=== PATIENT | female | born 1930 | race Caucasian/White ===

== ENCOUNTER 2016-08-04 10:06 | Outpatient (CLI) | payer MEDICARE, BC ==
[2016-08-04 11:54] LABS: ALT (SGPT) 16 U/L (0-55); AST (SGOT) 24 U/L (5-34); Albumin 3.9 g/dL (3.4-4.8); Alkaline Phosphatase 73 U/L (40-150); Anion Gap 14 mmol/L (10-20); BUN (Urea Nitrogen) 16 mg/dL (9.8-20.1); Bilirubin, Direct 0.4 mg/dL (0.1-0.3); Bilirubin, Total 0.9 mg/dL (0.2-1.2); Calc. Creatinine Clearance 0 mL/min (70-130); Calcium 9.8 mg/dL (7.8-10.44); Carbon Dioxide 24 mmol/L (23-31); Cardiac Risk 2.9 (Less than 4.5); Chloride 108 mmol/L (98-107); Cholesterol 136 mg/dL (< 200 Desired); Estimated GFR-MDRD 70; Glucose 84 mg/dL (83-110); HDL Cholesterol 47 mg/dL (>60 Neg Risk); LDL Cholesterol, Calculated 58 mg/dL; Potassium 4.6 mmol/L (3.5-5.1); Protein, Total 6.8 g/dL (5.8-8.1); Sodium 141 mmol/L (136-145); Triglycerides 157 mg/dL (Less than 150)
== END 2016-08-04 10:07 | disposition home or self-care (01) ==
LOC: BURLAB 10:06
PROVIDERS: ATTEND Internal Medicine Cardiovascular Disease
DX: E78.2 Mixed hyperlipidemia (principal); I10 Essential (primary) hypertension; Z98.61 Coronary angioplasty status
CPT/HCPCS: 36415; 80048; 80061; 80076

== ENCOUNTER 2018-01-08 11:05 | Emergency (ER) | payer MEDICARE, BC ==
--- NOTE | 2018-01-08 18:55 | RAD ---
LEFT WRIST THREE VIEWS: Date: 01-08-18 FINDINGS: A transverse impacted fracture of the distal radius is present with very slight posterior displacemen t of the distal fragment. There is also a relatively undisplaced fracture of the ulnar styloid proces s. The bones are osteopenic. The carpal bones showed no fracture. There is severe arthritic change be tween the trapezium and base of the first metacarpal. IMPRESSION: Colles' fracture. POS: HOME
== END 2018-01-08 12:03 | disposition home or self-care (01) ==
LOC: BURERS 11:05
DX: S52.502A Unspecified fracture of the lower end of left radius, initial encounter for closed fracture (principal); S52.615A Nondisplaced fracture of left ulna styloid process, initial encounter for closed fracture; I25.10 Atherosclerotic heart disease of native coronary artery without angina pectoris; I25.2 Old myocardial infarction; E78.5 Hyperlipidemia, unspecified; I10 Essential (primary) hypertension; J44.9 Chronic obstructive pulmonary disease, unspecified; Z86.711 Personal history of pulmonary embolism; Z87.891 Personal history of nicotine dependence; Z79.899 Other long term (current) drug therapy; Z79.82 Long term (current) use of aspirin
CPT/HCPCS: 29125

== ENCOUNTER 2018-01-11 18:52 | Inpatient (IN) | payer MEDICARE, BC ==
[2018-01-11 19:48] LABS: #Basophils 0.1 thou/uL (0.0-0.2); #Eosinphils 0.3 thou/uL (0.0-0.7); #Lymphocytes 1.8 thou/uL (1.20-3.40); #Monocytes 1.1 thou/uL (0.11-0.59); #Neutrophils 5.6 thou/uL (1.40-6.50); %Basophils 1.3 % (0.0-1.0); %Eosinophils 3.4 % (0.0-10.0); %Lymphocytes 20.5 % (21.0-51.0); %Monocytes 12.1 % (0.0-10.0); %Neutrophils 62.6 % (42.0-75.0); Hemoglobin 12.9 g/dL (12.0-16.0); Mean Corpuscular Hemoglobin 29.1 pg (27.0-31.0); Mean Corpuscular Volume 88.2 fL (78.0-98.0); Mean Platelet Volume 8.6 fL (7.4-10.4); Platelet Count 172 thou/uL (130-400); RBC Distribution Width 12.7 % (11.5-14.5); Red Blood Cell (RBC) Count 4.42 mill/uL (4.20-5.40); White Blood Cell (WBC) Count 8.9 thou/uL (4.8-10.8)
[2018-01-11 20:03] LABS: ALT (SGPT) 8 U/L (8-55); AST (SGOT) 13 U/L (5-34); Albumin 3.6 g/dL (3.4-4.8); Alkaline Phosphatase 65 U/L (40-150); Anion Gap 13 mmol/L (10-20); BUN (Urea Nitrogen) 19 mg/dL (9.8-20.1); CK (CPK) 43 U/L (29-168); Calc. Creatinine Clearance 0 mL/min (70-130); Calcium 9.6 mg/dL (7.8-10.44); Carbon Dioxide 27 mmol/L (23-31); Chloride 104 mmol/L (98-107); Estimated GFR-MDRD 70; Globulin 3.1 g/dL (2.4-3.5); Glucose 126 mg/dL (83-110); Potassium 3.5 mmol/L (3.5-5.1); Protein, Total 6.7 g/dL (6.0-8.3); Sodium 140 mmol/L (136-145)
[2018-01-11 20:05] LABS: CKMB 1.3 ng/mL (0-6.6); Troponin I Less than 0.010 ng/mL (< 0.028)
[2018-01-11 20:21] LABS: Clarity SLIGHTLY (Clear); Glucose, Urine (Dipstick) Negative (Negative); Leukocyte Negative (Negative); Nitrite Negative (Negative); Protein, Urine (Dipstick) 100 mg/dL (Neg-Trace); Specific Gravity, Urine 1.028 (1.002-1.036)
[2018-01-11 20:22] LABS: Bilirubin Negative (Negative); Blood, Urine Negative (Negative)
[2018-01-11 20:25] LABS: Bacteria/HPF Rare-Few HPF (None Seen); Renal Epithelial None Seen HPF (0-3); Squamous Epithelial 0-3 HPF (0-3); Transitional Epithelial NONE SEEN HPF (0-3)
[2018-01-11 20:26] LABS: Crystals/HPF None Seen HPF (Negative); Hyaline Casts/LPF NONE SEEN LPF (0-3 Hyaline); Oval Fat Bodies/HPF None Seen HPF (None Seen); Sperm/HPF None Seen HPF (None Seen); Trichomonas/HPF None Seen HPF (None Seen); Yeast-All Forms None Seen HPF (None Seen)
[2018-01-11 20:27] LABS: Other Casts/LPF 0-3 MIXED CASTS LPF (0-3 Hyaline)
--- NOTE | 2018-01-11 20:40 | CT ---
CT OF THE BRAIN WITHOUT CONTRAST: 01/11/[address] of the brain was performed for evaluation following trauma. Axial slices were acquired and comparison was made with the prior study dated 01/25/15. The ventricle are normal in size for age and show no shift. Mild atrophy is present. Patchy deep whit e matter hypolucency is consistent with chronic microvascular ischemic change. No intracranial bleedi ng or extra-axial hematoma was seen. There is some mucosal thickening in the sphenoid sinus on the ri ght side but no air fluid levels were seen. The calvarium appears intact. There is no sign of mass, a cute stroke or edema. IMPRESSION: Chronic ischemic changes but no acute findings. POS: HOME
[2018-01-11] MEDS ORDERED: Ondansetron HCl/PF 4 MG/2 ML Vial IVP PRN (22:13)
[2018-01-11] MEDS ORDERED: Ondansetron ODT 4 MG TAB SL PRN (22:13)
--- NOTE | 2018-01-11 22:32 | RAD ---
PORTABLE CHEST: 01/11/18 An AP portable film at 1938 is compared with a 08/09/16 study. Chronic fibrotic changes are seen in the lungs, particularly in the apices. These are about the same as before. there may be a little more haziness in the right cardiophrenic angle but this is uncertain . There is no major lobar infiltrate. The cardiac size is normal. Arteriosclerotic change is seen in the aorta. There is no congestive change. IMPRESSION: Chronic parenchymal changes. POS: HOME
[2018-01-11 23:08] VITALS: BMI 28.1
[2018-01-12] MEDS: Acetaminophen 325 MG TAB PO PRN (04:06)
[2018-01-12] MEDS ORDERED: HYDROcodone/Acetaminophen 5/325 mg Tablet PO PRN (07:25)
[2018-01-12] MEDS ORDERED: Senokot 8.6 MG TAB PO PRN (07:25)
[2018-01-12] MEDS: Amlodipine 5 MG TAB PO SCH (09:50)
[2018-01-12] MEDS: Fish Oil 1,000 MG CAP PO SCH (09:52)
[2018-01-12] MEDS: Multivit, Therapeutic 1 TAB PO SCH (09:52)
[2018-01-12] MEDS: Vitami E (Dl,Tocopheryl Acet) 400 UNITS CAP PO SCH ×2 (09:53→11:31)
[2018-01-12] MEDS: Polyethylene Glycol 3350 17 GM Packet PO SCH (09:53)
[2018-01-12] MEDS: Lisinopril 20 MG TAB PO SCH ×2 (09:55→22:14)
[2018-01-12] MEDS: Arformoterol 15 MCG/2 ML NEB NEB SCH ×2 (09:56→17:30)
[2018-01-12] MEDS: Mometasone/Formoterol 60 PUFF AER INH SCH ×2 (09:57→17:33)
[2018-01-12] MEDS: Budesonide 0.5 MG/2 ML NEB NEB SCH ×2 (09:58→17:31)
--- NOTE | 2018-01-12 10:17 | HP ---
DATE OF ADMISSION 01/12/2018 CHIEF COMPLAINT: Generalized weakness. HISTORY OF PRESENT ILLNESS: An 87-year-old female who presented to [facility] Emergency Department last night with progressive weakness and complaints of dizziness. She had recently been seen at [facility] Emergency Department this last weekend status post fall at home with resultant left distal radius fracture; she was placed in a splint and offered admission at that time secondary to her weakness, however, she declined. Upon returning home , she realized that she was unable to satisfactorily take care of herself over the next few days, specifically stating that she is unable to effectively arise from any of the chairs in her house. The patient does live alone and has family nearby. She is typically ambulatory with the assistance of her rolling walker. She presented to the emergency department last night secondary to her symptoms of weakness and accompanying complaint of dizziness, progressing to the point where she is unsatisfactorily able to care for herself. Evaluation in the emergency department included labs with a reassuring CBC, CMP, cardiac enzymes and urinalysis; a chest x-ray showed chronic parenchymal changes and a brain CT showed chronic ischemic changes, but no acute findings. The patient was subsequently admitted for her presenting symptoms and has been evaluated this morning by myself. She reports to be feeling well overall other than her progressive presenting symptoms. She is understanding of her need to participate with physical therapy and occupational therapy. She desires to follow up with Dr. Jimenez in regards to her left distal radius fracture. She reports to be right handed. The patient reports her ultimate goal is to be able to return to her home setting; however, is amenable to potentially discharge to the custodial should she be unable to satisfactorily meet the goals set by PT/OT. PAST MEDICAL HISTORY: Hypertension, gastroesophageal reflux disease, stress fracture sacroiliac, skin cancer removed from face, closed fracture of the shaft of the fibula and tibia. SURGICAL HISTORY: Appendectomy, tonsillectomy, hysterectomy, shoulder surgery, total knee replacement, spine surgery, hip replacement, carpal tunnel, cardiac stents. SOCIAL HISTORY: The patient is a nonsmoker, no alcohol use, no illicit drug use. She lives at home with family nearby. ALLERGIES: ADHESIVE TAPE. FAMILY HISTORY: Noncontributory. CURRENT MEDICATIONS: Include Ranexa 500 mg p.o. b.i.d., Lipitor 20 mg p.o. at bedtime, biotin 5 mg p.o. daily, multivitamin p.o. daily, omega 3 1000 mg 2 capsules daily, albuterol nebs 2.5 mg/3 mL q.4 hours p.r.n., Perforomist 20 mcg/ 2 mL nebs 2 nebs b.i.d., Pulmicort, lisinopril 20 mg p.o. b.i.d., metoprolol succinate 50 mg p.o. daily, isosorbide mononitrate extended release 30 mg 1/2 tablet p.o. daily and pantoprazole 40 mg p.o. daily. REVIEW OF SYSTEMS: GENERAL: Complains of generalized weakness. Denies fever. ENT: Denies sore throat, nasal drainage or congestion. CARDIOVASCULAR: Denies chest pain or palpitations. RESPIRATORY: Denies dyspnea or cough. GASTROINTESTINAL: Denies abdominal pain, nausea, vomiting, diarrhea or constipation. GENITOURINARY: Denies dysuria. MUSCULOSKELETAL: Complains of mild joint pains of the left wrist. DERMATOLOGIC: Denies rash. NEUROLOGIC: Denies headache. LABORATORY DATA: White blood cell count 8.9, H&H is 12.9 and 39.0, platelets 172. Sodium 140, potassium 3.5, BUN 19, creatinine 0.78 with a GFR 70, glucose 126, calcium 9.6, AST 13, ALT 8. UA is negative for nitrites or leukocyte esterase. IMAGING: As per HPI. PHYSICAL EXAMINATION: VITAL SIGNS: Temperature is 98.4, pulse is 87, respiratory rate is 20, oxygen 95% on room air, blood pressure 136/80. GENERAL: Elderly patient alert and oriented x3 in no acute distress. FACE: No asymmetry. EYES: Conjunctivae are clear. Extraocular muscles are intact bilaterally. No discharge. HEENT: Within normal limits. Oral cavity has moist mucous membranes. NECK: Supple, full range of motion. No lymphadenopathy, no meningeal signs. CARDIOVASCULAR: 2/6 systolic ejection murmur, regular rate and rhythm. RESPIRATORY: Clear to auscultation bilaterally. ABDOMEN: Soft, nontender to palpation, no masses, no organomegaly. EXTREMITIES: Distal left upper extremity has a splint. She has a right peripheral IV. LYMPH: Lymphedema to bilateral lower extremities. SKIN: No rash. NEUROLOGIC: Nonfocal. Cranial nerves II-XII grossly intact. ASSESSMENT AND PLAN: 1. Generalized weakness. The patient will participate with physical therapy and occupational therapy with a goal to be able to return home where she will likely need to be set up with home health as she is homebound, and if unable to reach these goals then will plan for transition to a custodial facility. 2. Recurrent falls. Patient again needs therapy. She is typically ambulatory with assistance of a rolling walker. 3. Left distal radius fracture. Nursing will attempt to schedule the patient with Dr. Jimenez in regards to this. She is currently in a splint. 4. Hypertension. The patient is hemodynamically stable. Continue her home blood pressure medications. 5. Chronic venous stasis. This is at baseline. The patient has been adverse to diuretic therapy secondary to lack of medication benefit with the complaint of requiring her to void with frequency. 6. Hyperlipidemia. We will continue the patient's statin. DISPOSITION: Pending progress with physical therapy and occupational therapy, we will plan to either have the patient return home with home health versus nursing facility. Prophylaxis, we will provide a PPI. No anticoagulants secondary to prior GI bleed. MTDD
[2018-01-12] MEDS: HYDROcodone/Acetaminophen 5/325 mg Tablet PO PRN (18:46)
[2018-01-12] MEDS: Atorvastatin Calcium 10 MG TAB PO SCH (22:12)
[2018-01-13] MEDS: HYDROcodone/Acetaminophen 5/325 mg Tablet PO PRN (03:39)
[2018-01-13] MEDS: Budesonide 0.5 MG/2 ML NEB NEB SCH ×2 (06:16→17:10)
[2018-01-13] MEDS: Arformoterol 15 MCG/2 ML NEB NEB SCH ×2 (06:20→17:09)
[2018-01-13] MEDS: Mometasone/Formoterol 60 PUFF AER INH SCH ×2 (06:28→17:11)
[2018-01-13] MEDS: Vitami E (Dl,Tocopheryl Acet) 400 UNITS CAP PO SCH (09:40)
[2018-01-13] MEDS: Amlodipine 5 MG TAB PO SCH (09:41)
[2018-01-13] MEDS: Fish Oil 1,000 MG CAP PO SCH (09:41)
[2018-01-13] MEDS: Lisinopril 20 MG TAB PO SCH ×2 (09:42→22:01)
[2018-01-13] MEDS: Polyethylene Glycol 3350 17 GM Packet PO SCH (09:42)
[2018-01-13] MEDS: Multivit, Therapeutic 1 TAB PO SCH (09:42)
[2018-01-13] MEDS: Acetaminophen 325 MG TAB PO PRN (19:49)
[2018-01-13] MEDS ORDERED: Multivit, Therapeutic 1 TAB PO SCH (21:00)
[2018-01-13] MEDS ORDERED: Fish Oil 1,000 MG CAP PO SCH (21:00)
[2018-01-13] MEDS: Atorvastatin Calcium 10 MG TAB PO SCH (21:48)
[2018-01-14] MEDS: Acetaminophen 325 MG TAB PO PRN (05:39)
[2018-01-14] MEDS: Arformoterol 15 MCG/2 ML NEB NEB SCH (06:06)
[2018-01-14] MEDS: Budesonide 0.5 MG/2 ML NEB NEB SCH (06:12)
[2018-01-14] MEDS: Mometasone/Formoterol 60 PUFF AER INH SCH (06:15)
[2018-01-14 06:53] VITALS: TEMP 98.9
[2018-01-14] MEDS: Amlodipine 5 MG TAB PO SCH (08:54)
[2018-01-14] MEDS: Polyethylene Glycol 3350 17 GM Packet PO SCH (08:54)
[2018-01-14] MEDS: Vitami E (Dl,Tocopheryl Acet) 400 UNITS CAP PO SCH (08:56)
[2018-01-14] MEDS: Lisinopril 20 MG TAB PO SCH (08:56)
[2018-01-14 09:00] VITALS: BP 130/58
[2018-01-14] MEDS: HYDROcodone/Acetaminophen 5/325 mg Tablet PO PRN (09:07)
--- NOTE | 2018-01-14 22:13 | DIS ---
DATE OF ADMISSION: 01/11/2018 DATE OF TRANSFER: 01/14/2018 ADMISSION DIAGNOSES: 1. Generalized weakness. 2. Left distal radius fracture. DISCHARGE DIAGNOSES: 1. Generalized weakness. 2. Left distal radius fracture. COMORBID CONDITIONS: 1. Hypertension. 2. Chronic venous stasis. 3. Hyperlipidemia. 4. Chronic obstructive pulmonary disease. 5. Coronary artery disease with history of myocardial infarction and stent placement. ATTENDING PHYSICIAN: Dr. Santiago Elizabeth with Dr. Ila Cordova covering on the date of transfer. PROCEDURES: 1. CT of the brain from the date of admission without contrast, which showed chronic ischemic changes, but no acute findings. 2. Chest x-ray from the date of admission, she has chronic parenchymal changes. 3. CBC on the date of admission unremarkable. 4. Comprehensive metabolic profile from the date of admission remarkable for glucose of 126, nonfasting. 5. Cardiac enzymes from the date of admission negative. 6. Urinalysis on the date of admission remarkable for 100 protein, 15 ketones, 2.0 urobilinogen, 4-6 wbc, 0-3 mixed casts, otherwise unremarkable. HISTORY AND PHYSICAL EXAMINATION: Please see dictated report from attending physician from the date of admission. HOSPITAL COURSE: Ms. Whaley is an 87-year-old female who lives alone who sustained a left distal radius fracture status post fall in her home who presented for emergency care on 01/08. She remained at home a couple of days in a forearm splint, but has a history of generalized weakness and realized that she was unable to care for herself at home and thus presented back to the emergency department on 01/11. The patient had a workup for generalized weakness that showed no acute findings. She was admitted for physical and occupational therapy, pain control with a plan to return back home with home health. She has had an uncomplicated hospital stay. On the date of discharge, she has good pain control and denies dyspnea, chest pain, abdominal pain. She will transfer to our swing bed unit with plans for continued PT and OT with walker assist. She will have an appointment scheduled outpatient with her orthopedic surgeon, Dr. Damien Jimenez. She will be continued on all of her current medications at this time. DISPOSITION: Transfer to assisted/swing bed at [facility]. CONDITION: Stable. DISCHARGE MEDICATIONS: 1. Acetaminophen 650 mg p.o. q.4 hours p.r.n. pain or fever. 2. Norvasc 5 mg p.o. daily. 3. Brovana 15 mcg b.i.d. per nebulizer. 4. Aspirin 81 mg p.o. daily. 5. Lipitor 20 mg p.o. at bedtime. 6. Pulmicort 0.25 mg nebulized b.i.d. 7. Vitamin D3 of 5000 units daily. 8. Fish oil 1000 units daily. 9. [place] 5/325 one p.o. q.6 hours p.r.n. 10. Imdur ER 30 mg p.o. daily. 11. Zestril 20 mg p.o. b.i.d. 12. Toprol-XL 50 mg p.o. daily. 13. Dulera 200/5 mcg 2 puff inhaled b.i.d. 14. Theragran multivitamin 1 p.o. daily. 15. Zofran ODT 4 mg sublingual q.6 hours p.r.n. nausea. 16. Protonix 40 mg p.o. daily. 17. MiraLax 17 grams p.o. daily. 18. Ranexa 500 mg p.o. b.i.d. 19. Senokot 1 p.o. b.i.d. p.r.n. stool softener. 20. Vitamin E 1200 units p.o. daily. 21. Nitroglycerin sublingual 0.4 mg b.i.d. p.r.n. chest pain. 22. Biotin one p.o. daily. FOLLOWUP: Will be with Dr. Santiago Elizabeth within 7 days in the swing bed unit and with Dr. Damien Jimenez to be scheduled on Tuesday. [facility]
== END 2018-01-14 13:43 | disposition swing bed (61) | DRG 948 ==
LOC: BURERS 18:52 → BURMED 21:00
PROVIDERS: ADMIT Family Medicine; ATTEND Family Medicine
DX: R53.1 Weakness (principal); I10 Essential (primary) hypertension; K21.9 Gastro-esophageal reflux disease without esophagitis; Z85.828 Personal history of other malignant neoplasm of skin; Z87.81 Personal history of (healed) traumatic fracture; Z96.659 Presence of unspecified artificial knee joint; Z91.81 History of falling; S52.502D Unspecified fracture of the lower end of left radius, subsequent encounter for closed fracture with routine healing; I87.8 Other specified disorders of veins; E78.5 Hyperlipidemia, unspecified; J44.9 Chronic obstructive pulmonary disease, unspecified; I25.2 Old myocardial infarction; I25.10 Atherosclerotic heart disease of native coronary artery without angina pectoris; I25.119 Atherosclerotic heart disease of native coronary artery with unspecified angina pectoris; Z86.711 Personal history of pulmonary embolism
CPT/HCPCS: 70450; 71045; 80053; 81003; 81015; 82553; 84484; 85025; 90471; 90662; 93005; 94640; 94664; 94760; A4216; A4353; G0008; G8978-GP-CJ; G8979-GP-CI; G8987-GO-CK; G8988-GO-CI; J7626; Q0162

== ENCOUNTER 2018-01-14 13:45 | Inpatient (IN) | payer MEDICARE, BC ==
[2018-01-14] MEDS ORDERED: Acetaminophen 325 MG TAB PO PRN (14:52)
[2018-01-14] MEDS ORDERED: Ondansetron ODT 4 MG TAB SL PRN (14:52)
[2018-01-14] MEDS ORDERED: HYDROcodone/Acetaminophen 5/325 mg Tablet PO PRN (14:53)
[2018-01-14 15:13] VITALS: BMI 28.0
[2018-01-14] MEDS: Arformoterol 15 MCG/2 ML NEB NEB SCH (20:40)
[2018-01-14] MEDS: Budesonide 0.5 MG/2 ML NEB NEB SCH (20:42)
[2018-01-14] MEDS: Mometasone/Formoterol 60 PUFF AER INH SCH (20:44)
[2018-01-14] MEDS: Multivit, Therapeutic 1 TAB PO SCH (20:45)
[2018-01-14] MEDS: Fish Oil 1,000 MG CAP PO SCH (20:45)
[2018-01-14] MEDS: Atorvastatin Calcium 10 MG TAB PO SCH (20:46)
[2018-01-14] MEDS: Lisinopril 20 MG TAB PO SCH (20:50)
[2018-01-14] MEDS: Senokot 8.6 MG TAB PO PRN (22:49)
[2018-01-14] MEDS ORDERED: Nitroglycerin 0.4 MG TAB (25 Tab Bottle) SL PRN (23:14)
[2018-01-15] MEDS: Arformoterol 15 MCG/2 ML NEB NEB SCH ×2 (06:14→22:49)
[2018-01-15] MEDS: Budesonide 0.5 MG/2 ML NEB NEB SCH ×2 (06:17→22:50)
[2018-01-15] MEDS: Mometasone/Formoterol 60 PUFF AER INH SCH ×2 (06:31→22:51)
[2018-01-15] MEDS: Polyethylene Glycol 3350 17 GM Packet PO SCH (08:36)
[2018-01-15] MEDS: Amlodipine 5 MG TAB PO SCH (08:37)
[2018-01-15] MEDS: Vitami E (Dl,Tocopheryl Acet) 400 UNITS CAP PO SCH (08:38)
[2018-01-15] MEDS: Lisinopril 20 MG TAB PO SCH ×2 (08:41→22:48)
[2018-01-15] MEDS ORDERED: Bisacodyl 10 MG SUPP PR PRN (12:38)
[2018-01-15] MEDS: Atorvastatin Calcium 10 MG TAB PO SCH (22:47)
[2018-01-15] MEDS: Multivit, Therapeutic 1 TAB PO SCH (22:47)
[2018-01-15] MEDS: Fish Oil 1,000 MG CAP PO SCH ×2 (22:48→22:55)
[2018-01-16] MEDS: Arformoterol 15 MCG/2 ML NEB NEB SCH ×2 (06:03→19:53)
[2018-01-16] MEDS: Budesonide 0.5 MG/2 ML NEB NEB SCH ×2 (06:06→19:58)
[2018-01-16] MEDS: Mometasone/Formoterol 60 PUFF AER INH SCH ×2 (06:23→20:00)
[2018-01-16] MEDS: Vitami E (Dl,Tocopheryl Acet) 400 UNITS CAP PO SCH (08:50)
[2018-01-16] MEDS: Amlodipine 5 MG TAB PO SCH (08:52)
[2018-01-16] MEDS: Lisinopril 20 MG TAB PO SCH ×2 (08:53→20:03)
[2018-01-16] MEDS: Polyethylene Glycol 3350 17 GM Packet PO SCH (08:54)
[2018-01-16] MEDS: Atorvastatin Calcium 10 MG TAB PO SCH (20:02)
[2018-01-16] MEDS: Multivit, Therapeutic 1 TAB PO SCH (20:02)
[2018-01-16] MEDS: Fish Oil 1,000 MG CAP PO SCH (20:03)
[2018-01-17] MEDS: Arformoterol 15 MCG/2 ML NEB NEB SCH ×2 (06:17→18:56)
[2018-01-17] MEDS: Budesonide 0.5 MG/2 ML NEB NEB SCH ×2 (06:20→19:13)
[2018-01-17] MEDS: Mometasone/Formoterol 60 PUFF AER INH SCH ×2 (06:22→19:16)
[2018-01-17] MEDS: Lisinopril 20 MG TAB PO SCH ×2 (09:28→21:38)
[2018-01-17] MEDS: Polyethylene Glycol 3350 17 GM Packet PO SCH (09:30)
[2018-01-17] MEDS: Senokot 8.6 MG TAB PO PRN (09:30)
[2018-01-17] MEDS: Vitami E (Dl,Tocopheryl Acet) 400 UNITS CAP PO SCH (09:31)
[2018-01-17] MEDS: Amlodipine 5 MG TAB PO SCH (09:31)
[2018-01-17] MEDS: Atorvastatin Calcium 10 MG TAB PO SCH (21:42)
[2018-01-17] MEDS: Multivit, Therapeutic 1 TAB PO SCH (21:42)
[2018-01-17] MEDS: Fish Oil 1,000 MG CAP PO SCH (21:43)
[2018-01-18] MEDS: Mometasone/Formoterol 60 PUFF AER INH SCH ×2 (06:07→18:49)
[2018-01-18] MEDS: Budesonide 0.5 MG/2 ML NEB NEB SCH ×2 (06:11→18:42)
[2018-01-18] MEDS: Arformoterol 15 MCG/2 ML NEB NEB SCH ×2 (06:37→18:44)
[2018-01-18] MEDS: Lisinopril 20 MG TAB PO SCH ×2 (09:22→21:59)
[2018-01-18] MEDS: Amlodipine 5 MG TAB PO SCH (09:23)
[2018-01-18] MEDS: Polyethylene Glycol 3350 17 GM Packet PO SCH (09:24)
[2018-01-18] MEDS: Vitami E (Dl,Tocopheryl Acet) 400 UNITS CAP PO SCH (09:27)
[2018-01-18] MEDS: Multivit, Therapeutic 1 TAB PO SCH (22:02)
[2018-01-18] MEDS: Atorvastatin Calcium 10 MG TAB PO SCH (22:02)
[2018-01-19] MEDS: Mometasone/Formoterol 60 PUFF AER INH SCH ×2 (06:05→18:52)
[2018-01-19] MEDS: Arformoterol 15 MCG/2 ML NEB NEB SCH ×2 (06:08→18:50)
[2018-01-19] MEDS: Budesonide 0.5 MG/2 ML NEB NEB SCH ×2 (06:32→18:49)
[2018-01-19] MEDS: Lisinopril 20 MG TAB PO SCH ×2 (09:51→21:24)
[2018-01-19] MEDS: Amlodipine 5 MG TAB PO SCH (09:53)
[2018-01-19] MEDS: Polyethylene Glycol 3350 17 GM Packet PO SCH (09:55)
[2018-01-19] MEDS: KRILL OIL 350 MG PO SCH (09:56)
[2018-01-19] MEDS: VITAMIN PO SCH (09:56)
[2018-01-19] MEDS: VITAMIN D3 25 MCG PO SCH (09:57)
[2018-01-19] MEDS: Atorvastatin Calcium 10 MG TAB PO SCH (21:28)
[2018-01-19] MEDS: Multivit, Therapeutic 1 TAB PO SCH (21:28)
[2018-01-20] MEDS: Mometasone/Formoterol 60 PUFF AER INH SCH (10:30)
[2018-01-20] MEDS: Polyethylene Glycol 3350 17 GM Packet PO SCH (10:30)
[2018-01-20] MEDS: Amlodipine 5 MG TAB PO SCH (10:30)
[2018-01-20] MEDS: VITAMIN PO SCH (10:30)
[2018-01-20] MEDS: Budesonide 0.5 MG/2 ML NEB NEB SCH (10:30)
[2018-01-20] MEDS: VITAMIN D3 25 MCG PO SCH (10:30)
[2018-01-20] MEDS: KRILL OIL 350 MG PO SCH (10:30)
[2018-01-20] MEDS: Lisinopril 20 MG TAB PO SCH ×2 (10:30→20:33)
[2018-01-20] MEDS: Arformoterol 15 MCG/2 ML NEB NEB SCH (11:05)
[2018-01-20] MEDS: Nystatin 500,000 UNITS/5 ML UDCUP SSW SCH ×3 (13:00→20:32)
[2018-01-20] MEDS: Atorvastatin Calcium 10 MG TAB PO SCH (20:33)
[2018-01-20] MEDS: Multivit, Therapeutic 1 TAB PO SCH (20:33)
[2018-01-21] MEDS: Budesonide 0.5 MG/2 ML NEB NEB SCH ×2 (06:46→18:55)
[2018-01-21] MEDS: Arformoterol 15 MCG/2 ML NEB NEB SCH ×3 (06:48→18:50)
[2018-01-21] MEDS: Mometasone/Formoterol 60 PUFF AER INH SCH ×2 (06:49→18:57)
[2018-01-21] MEDS: Amlodipine 5 MG TAB PO SCH (10:24)
[2018-01-21] MEDS: Lisinopril 20 MG TAB PO SCH ×2 (10:25→21:26)
[2018-01-21] MEDS: Nystatin 500,000 UNITS/5 ML UDCUP SSW SCH ×4 (10:26→21:26)
[2018-01-21] MEDS: KRILL OIL 350 MG PO SCH (10:27)
[2018-01-21] MEDS: VITAMIN D3 25 MCG PO SCH (10:28)
[2018-01-21] MEDS: VITAMIN PO SCH (10:28)
[2018-01-21] MEDS: Polyethylene Glycol 3350 17 GM Packet PO SCH (10:29)
[2018-01-21] MEDS: Multivit, Therapeutic 1 TAB PO SCH (21:26)
[2018-01-21] MEDS: Atorvastatin Calcium 10 MG TAB PO SCH (21:27)
[2018-01-22] MEDS: Budesonide 0.5 MG/2 ML NEB NEB SCH ×3 (06:45→20:04)
[2018-01-22] MEDS: Arformoterol 15 MCG/2 ML NEB NEB SCH ×2 (06:47→18:43)
[2018-01-22] MEDS: Mometasone/Formoterol 60 PUFF AER INH SCH ×3 (06:48→20:05)
[2018-01-22] MEDS: Amlodipine 5 MG TAB PO SCH (09:40)
[2018-01-22] MEDS: Nystatin 500,000 UNITS/5 ML UDCUP SSW SCH ×3 (09:41→18:45)
[2018-01-22] MEDS: Lisinopril 20 MG TAB PO SCH ×2 (09:41→21:23)
[2018-01-22] MEDS: Polyethylene Glycol 3350 17 GM Packet PO SCH (09:41)
[2018-01-22] MEDS: VITAMIN PO SCH (09:43)
[2018-01-22] MEDS: KRILL OIL 350 MG PO SCH (09:44)
[2018-01-22] MEDS: VITAMIN D3 25 MCG PO SCH (09:44)
[2018-01-22] MEDS: Multivit, Therapeutic 1 TAB PO SCH (21:23)
[2018-01-22] MEDS: Atorvastatin Calcium 10 MG TAB PO SCH (21:23)
[2018-01-23] MEDS: Nystatin 500,000 UNITS/5 ML UDCUP SSW SCH ×5 (01:19→20:41)
[2018-01-23] MEDS: Arformoterol 15 MCG/2 ML NEB NEB SCH ×2 (06:22→18:52)
[2018-01-23] MEDS: Budesonide 0.5 MG/2 ML NEB NEB SCH ×2 (06:23→18:53)
[2018-01-23] MEDS: Mometasone/Formoterol 60 PUFF AER INH SCH ×2 (06:24→18:58)
[2018-01-23] MEDS: Polyethylene Glycol 3350 17 GM Packet PO SCH (09:19)
[2018-01-23] MEDS: Amlodipine 5 MG TAB PO SCH (09:19)
[2018-01-23] MEDS: Lisinopril 20 MG TAB PO SCH ×2 (09:19→20:41)
[2018-01-23] MEDS: VITAMIN PO SCH (09:21)
[2018-01-23] MEDS: VITAMIN D3 25 MCG PO SCH (09:22)
[2018-01-23] MEDS: KRILL OIL 350 MG PO SCH (09:22)
[2018-01-23] MEDS: Multivit, Therapeutic 1 TAB PO SCH (20:41)
[2018-01-23] MEDS: Atorvastatin Calcium 10 MG TAB PO SCH (20:41)
[2018-01-24] MEDS: Budesonide 0.5 MG/2 ML NEB NEB SCH ×2 (06:10→18:59)
[2018-01-24] MEDS: Arformoterol 15 MCG/2 ML NEB NEB SCH ×2 (06:13→19:02)
[2018-01-24] MEDS: Mometasone/Formoterol 60 PUFF AER INH SCH ×2 (06:17→19:11)
[2018-01-24] MEDS: Lisinopril 20 MG TAB PO SCH ×2 (09:11→21:40)
[2018-01-24] MEDS: Polyethylene Glycol 3350 17 GM Packet PO SCH (09:11)
[2018-01-24] MEDS: Amlodipine 5 MG TAB PO SCH (09:12)
[2018-01-24] MEDS: Senokot 8.6 MG TAB PO PRN (09:12)
[2018-01-24] MEDS: VITAMIN D3 25 MCG PO SCH (09:14)
[2018-01-24] MEDS: VITAMIN PO SCH (09:14)
[2018-01-24] MEDS: KRILL OIL 350 MG PO SCH (09:15)
[2018-01-24] MEDS: Nystatin 500,000 UNITS/5 ML UDCUP SSW SCH ×3 (13:00→21:40)
[2018-01-24] MEDS: diphenhydrAMINE 25 MG CAP PO SCH (21:40)
[2018-01-24] MEDS: Atorvastatin Calcium 10 MG TAB PO SCH (21:40)
[2018-01-24] MEDS: Multivit, Therapeutic 1 TAB PO SCH (21:41)
[2018-01-25] MEDS: Arformoterol 15 MCG/2 ML NEB NEB SCH ×2 (06:19→18:37)
[2018-01-25] MEDS: Budesonide 0.5 MG/2 ML NEB NEB SCH ×2 (06:23→18:39)
[2018-01-25] MEDS: Mometasone/Formoterol 60 PUFF AER INH SCH ×2 (06:24→18:35)
[2018-01-25] MEDS: Nystatin 500,000 UNITS/5 ML UDCUP SSW SCH ×4 (09:37→20:13)
[2018-01-25] MEDS: Amlodipine 5 MG TAB PO SCH (09:38)
[2018-01-25] MEDS: Lisinopril 20 MG TAB PO SCH ×2 (09:38→20:13)
[2018-01-25] MEDS: VITAMIN PO SCH (09:40)
[2018-01-25] MEDS: KRILL OIL 350 MG PO SCH (09:41)
[2018-01-25] MEDS: VITAMIN D3 25 MCG PO SCH (09:41)
[2018-01-25] MEDS: Polyethylene Glycol 3350 17 GM Packet PO SCH (09:42)
[2018-01-25] MEDS: Atorvastatin Calcium 10 MG TAB PO SCH (20:13)
[2018-01-25] MEDS: Multivit, Therapeutic 1 TAB PO SCH (20:13)
[2018-01-25] MEDS: diphenhydrAMINE 25 MG CAP PO SCH (20:13)
[2018-01-26] MEDS: Budesonide 0.5 MG/2 ML NEB NEB SCH ×2 (06:09→18:34)
[2018-01-26] MEDS: Arformoterol 15 MCG/2 ML NEB NEB SCH ×2 (06:10→18:33)
[2018-01-26] MEDS: Mometasone/Formoterol 60 PUFF AER INH SCH ×2 (06:11→18:29)
[2018-01-26] MEDS: Nystatin 500,000 UNITS/5 ML UDCUP SSW SCH ×4 (09:43→21:51)
[2018-01-26] MEDS: Lisinopril 20 MG TAB PO SCH ×2 (09:43→21:52)
[2018-01-26] MEDS: Amlodipine 5 MG TAB PO SCH (09:44)
[2018-01-26] MEDS: KRILL OIL 350 MG PO SCH (09:44)
[2018-01-26] MEDS: VITAMIN D3 25 MCG PO SCH (09:45)
[2018-01-26] MEDS: VITAMIN PO SCH (09:45)
[2018-01-26] MEDS: Polyethylene Glycol 3350 17 GM Packet PO SCH (09:48)
[2018-01-26] MEDS: Atorvastatin Calcium 10 MG TAB PO SCH (21:52)
[2018-01-26] MEDS: Multivit, Therapeutic 1 TAB PO SCH (21:52)
[2018-01-26] MEDS: diphenhydrAMINE 25 MG CAP PO SCH (21:52)
[2018-01-27] MEDS: Mometasone/Formoterol 60 PUFF AER INH SCH ×2 (06:39→20:23)
[2018-01-27] MEDS: Arformoterol 15 MCG/2 ML NEB NEB SCH ×2 (06:44→20:21)
[2018-01-27] MEDS: Budesonide 0.5 MG/2 ML NEB NEB SCH ×2 (06:46→20:22)
[2018-01-27] MEDS: Polyethylene Glycol 3350 17 GM Packet PO SCH (09:33)
[2018-01-27] MEDS: Amlodipine 5 MG TAB PO SCH (09:35)
[2018-01-27] MEDS: Lisinopril 20 MG TAB PO SCH ×2 (09:37→22:36)
[2018-01-27] MEDS: Nystatin 500,000 UNITS/5 ML UDCUP SSW SCH ×4 (09:37→22:41)
[2018-01-27] MEDS: KRILL OIL 350 MG PO SCH (09:39)
[2018-01-27] MEDS: VITAMIN PO SCH (09:39)
[2018-01-27] MEDS: VITAMIN D3 25 MCG PO SCH (09:39)
[2018-01-27] MEDS: diphenhydrAMINE 25 MG CAP PO SCH (22:35)
[2018-01-27] MEDS: Atorvastatin Calcium 10 MG TAB PO SCH (22:35)
[2018-01-27] MEDS: Multivit, Therapeutic 1 TAB PO SCH (22:36)
[2018-01-28] MEDS: Mometasone/Formoterol 60 PUFF AER INH SCH ×2 (06:12→18:07)
[2018-01-28] MEDS: Arformoterol 15 MCG/2 ML NEB NEB SCH ×2 (06:14→18:14)
[2018-01-28] MEDS: Budesonide 0.5 MG/2 ML NEB NEB SCH ×2 (06:25→18:09)
[2018-01-28] MEDS: Polyethylene Glycol 3350 17 GM Packet PO SCH (08:59)
[2018-01-28] MEDS: Nystatin 500,000 UNITS/5 ML UDCUP SSW SCH ×4 (09:00→20:56)
[2018-01-28] MEDS: Lisinopril 20 MG TAB PO SCH ×2 (09:01→20:55)
[2018-01-28] MEDS: Amlodipine 5 MG TAB PO SCH (09:01)
[2018-01-28] MEDS: KRILL OIL 350 MG PO SCH (09:06)
[2018-01-28] MEDS: VITAMIN D3 25 MCG PO SCH (09:06)
[2018-01-28] MEDS: VITAMIN PO SCH (09:07)
[2018-01-28] MEDS: Multivit, Therapeutic 1 TAB PO SCH (20:55)
[2018-01-28] MEDS: diphenhydrAMINE 25 MG CAP PO SCH (20:55)
[2018-01-28] MEDS: Atorvastatin Calcium 10 MG TAB PO SCH (20:56)
[2018-01-29] MEDS: Mometasone/Formoterol 60 PUFF AER INH SCH ×2 (06:09→18:45)
[2018-01-29] MEDS: Arformoterol 15 MCG/2 ML NEB NEB SCH ×2 (06:12→18:23)
[2018-01-29] MEDS: Budesonide 0.5 MG/2 ML NEB NEB SCH ×2 (06:21→18:19)
[2018-01-29] MEDS: VITAMIN PO SCH (08:32)
[2018-01-29] MEDS: KRILL OIL 350 MG PO SCH (08:33)
[2018-01-29] MEDS: VITAMIN D3 25 MCG PO SCH (08:33)
[2018-01-29] MEDS: Polyethylene Glycol 3350 17 GM Packet PO SCH (08:34)
[2018-01-29] MEDS: Amlodipine 5 MG TAB PO SCH (08:35)
[2018-01-29] MEDS: Lisinopril 20 MG TAB PO SCH ×2 (08:36→21:35)
[2018-01-29] MEDS: Nystatin 500,000 UNITS/5 ML UDCUP SSW SCH ×4 (08:37→22:35)
[2018-01-29] MEDS: Multivit, Therapeutic 1 TAB PO SCH (21:35)
[2018-01-29] MEDS: diphenhydrAMINE 25 MG CAP PO SCH (21:35)
[2018-01-29] MEDS: Atorvastatin Calcium 10 MG TAB PO SCH (21:35)
[2018-01-30] MEDS: Mometasone/Formoterol 60 PUFF AER INH SCH ×2 (06:13→18:19)
[2018-01-30] MEDS: Arformoterol 15 MCG/2 ML NEB NEB SCH ×2 (06:16→18:24)
[2018-01-30] MEDS: Budesonide 0.5 MG/2 ML NEB NEB SCH ×2 (06:20→18:22)
[2018-01-30] MEDS: Polyethylene Glycol 3350 17 GM Packet PO SCH (08:53)
[2018-01-30] MEDS: Nystatin 500,000 UNITS/5 ML UDCUP SSW SCH ×4 (08:54→20:42)
[2018-01-30] MEDS: Fluconazole 100 MG TAB PO SCH (08:54)
[2018-01-30] MEDS: Amlodipine 5 MG TAB PO SCH (08:56)
[2018-01-30] MEDS: Lisinopril 20 MG TAB PO SCH ×2 (08:56→20:42)
[2018-01-30] MEDS: VITAMIN D3 25 MCG PO SCH (08:59)
[2018-01-30] MEDS: KRILL OIL 350 MG PO SCH (09:00)
[2018-01-30] MEDS: VITAMIN PO SCH (09:00)
[2018-01-30] MEDS: diphenhydrAMINE 25 MG CAP PO SCH (20:42)
[2018-01-30] MEDS: Atorvastatin Calcium 10 MG TAB PO SCH (20:42)
[2018-01-30] MEDS: Multivit, Therapeutic 1 TAB PO SCH (20:42)
[2018-01-31] MEDS: Mometasone/Formoterol 60 PUFF AER INH SCH ×2 (06:10→18:12)
[2018-01-31] MEDS: Arformoterol 15 MCG/2 ML NEB NEB SCH ×2 (06:14→18:17)
[2018-01-31] MEDS: Budesonide 0.5 MG/2 ML NEB NEB SCH ×2 (06:22→18:19)
[2018-01-31] MEDS: Nystatin 500,000 UNITS/5 ML UDCUP SSW SCH ×4 (09:08→20:14)
[2018-01-31] MEDS: Amlodipine 5 MG TAB PO SCH (09:08)
[2018-01-31] MEDS: Polyethylene Glycol 3350 17 GM Packet PO SCH (09:08)
[2018-01-31] MEDS: VITAMIN PO SCH (09:09)
[2018-01-31] MEDS: VITAMIN D3 25 MCG PO SCH (09:09)
[2018-01-31] MEDS: Lisinopril 20 MG TAB PO SCH ×2 (09:09→20:15)
[2018-01-31] MEDS: Fluconazole 100 MG TAB PO SCH (09:09)
[2018-01-31] MEDS: KRILL OIL 350 MG PO SCH (09:09)
[2018-01-31] MEDS: diphenhydrAMINE 25 MG CAP PO SCH (20:14)
[2018-01-31] MEDS: Multivit, Therapeutic 1 TAB PO SCH (20:14)
[2018-01-31] MEDS: Atorvastatin Calcium 10 MG TAB PO SCH (20:14)
[2018-02-01] MEDS: Arformoterol 15 MCG/2 ML NEB NEB SCH ×2 (05:50→18:30)
[2018-02-01] MEDS: Mometasone/Formoterol 60 PUFF AER INH SCH ×2 (05:55→18:29)
[2018-02-01] MEDS: Budesonide 0.5 MG/2 ML NEB NEB SCH ×2 (05:57→18:34)
[2018-02-01] MEDS: Lisinopril 20 MG TAB PO SCH ×2 (09:07→21:08)
[2018-02-01] MEDS: Amlodipine 5 MG TAB PO SCH (09:08)
[2018-02-01] MEDS: Polyethylene Glycol 3350 17 GM Packet PO SCH (09:08)
[2018-02-01] MEDS: Nystatin 500,000 UNITS/5 ML UDCUP SSW SCH ×4 (09:09→21:07)
[2018-02-01] MEDS: Fluconazole 100 MG TAB PO SCH (09:10)
[2018-02-01] MEDS: KRILL OIL 350 MG PO SCH (09:12)
[2018-02-01] MEDS: VITAMIN D3 25 MCG PO SCH (09:12)
[2018-02-01] MEDS: VITAMIN PO SCH (09:13)
[2018-02-01] MEDS: diphenhydrAMINE 25 MG CAP PO SCH (21:07)
[2018-02-01] MEDS: Atorvastatin Calcium 10 MG TAB PO SCH (21:07)
[2018-02-01] MEDS: Multivit, Therapeutic 1 TAB PO SCH (21:07)
[2018-02-02] MEDS: Mometasone/Formoterol 60 PUFF AER INH SCH (06:07)
[2018-02-02] MEDS: Arformoterol 15 MCG/2 ML NEB NEB SCH (06:10)
[2018-02-02] MEDS: Budesonide 0.5 MG/2 ML NEB NEB SCH (06:12)
[2018-02-02 06:14] VITALS: BP 136/63; TEMP 97.5
[2018-02-02] MEDS: KRILL OIL 350 MG PO SCH (08:21)
[2018-02-02] MEDS: VITAMIN D3 25 MCG PO SCH (08:21)
[2018-02-02] MEDS: VITAMIN PO SCH (08:22)
[2018-02-02] MEDS: Lisinopril 20 MG TAB PO SCH (08:23)
[2018-02-02] MEDS: Amlodipine 5 MG TAB PO SCH (08:24)
[2018-02-02] MEDS: Fluconazole 100 MG TAB PO SCH (08:25)
[2018-02-02] MEDS: Polyethylene Glycol 3350 17 GM Packet PO SCH (08:25)
--- NOTE | 2018-02-02 08:39 | DIS ---
DATE OF ADMISSION: 01/14/2018 DATE OF DISCHARGE: 02/02/2018 ADMISSION DIAGNOSES: Generalized weakness with recurrent falls, left distal radius fracture. SECONDARY DIAGNOSES: Hypertension, chronic venous stasis/lymphedema, hyperlipidemia, coronary artery disease with history of myocardial infarction and stent placement, chronic obstructive pulmonary disease. PROCEDURES: None. HOSPITAL COURSE: 87-year-old female fell at home sustaining a left distal radius fracture, which was initially diagnosed at [facility] Emergency Department. She returned home where she typically lives alone with family nearby and subsequently was unable to take care of herself or perform home activities of daily living. Due to the left distal radius fracture in particular, she had difficulty getting out of a chair from a seated position. She had been placed in a forearm splint somewhat complicating her ability to arise. Due to this and further physical deconditioning, she presented back to our facility and was directly admitted to participate with physical therapy and occupational therapy. She was able to follow up with Dr. Jimenez, who placed the patient in a modified splint enabling a freer ability to use her left hand. She typically ambulates with the assistance of a walker and was better able to use this accordingly. She was able to successfully work with physical therapy and occupational therapy in order to meet the goals set forth to be able to return to her home. Upon f/u with Dr. Jimenez, it was decided not to pursue surgical intervention at that time and that she wear the splint with further follow up 6 weeks after their visit. During the patient's stay, she did develop oral thrush, likely secondary to her COPD inhaled medications, which has improved with treatment with nystatin swish and swallow and oral fluconazole; she will be discharged with an additional 3- day course of fluconazole to complete this treatment. The patient is comfortable with returning home at this time having satisfactorily met the goals set forth by therapy and will continue her transition further with [facility]. She will resume all of her usual medications otherwise. DISPOSITION: The patient will discharge home where she lives alone and is frequently checked upon by family members nearby. She will have home health care via [facility] with further skilled care with PT and OT. DISCHARGE FOLLOWUP: She will follow up with Dr. Jimenez as planned in approximately 5 weeks. She may follow up with myself further in clinical setting next week. DISCHARGE MEDICATIONS: New medication includes fluconazole 100 mg p.o. daily x3 days. She will resume her usual medications including Tylenol 500 mg p.o. q.6 hours p.r.n., Norvasc 5 mg p.o. daily, Brovana 15 mcg b.i.d. per nebulizer, aspirin 81 mg p.o. daily, Lipitor 20 mg p.o. at bedtime, Pulmicort 0.25 mg nebulizer b.i.d., vitamin D3 5000 units daily, fish oil 1000 units daily, [place] 5/325 p.o. q.6 hours p.r.n., Imdur extended release 30 mg p.o. daily, Zestril 20 mg p.o. b.i.d., Toprol-XL 50 mg p.o. daily, Dulera 200/5 mcg 2 puffs inhaled b.i.d., Theragran multivitamin p.o. daily, Zofran ODT 4 mg sublingual q.6 hours p.r.n., Protonix 40 mg p.o. daily, MiraLax 17 grams p.o. daily, Ranexa 500 mg p.o. b.i.d., Senokot 1 p.o. b.i.d. p.r.n., vitamin E 1200 units p.o. daily, nitroglycerin sublingual 0.4 mg b.i.d. p.r.n. and Biotin 1 p.o. daily. MTDD
== END 2018-02-02 10:55 | disposition home health service (06) | DRG 561 ==
LOC: BURMED 13:45
PROVIDERS: ADMIT Family Medicine; ATTEND Family Medicine
DX: S52.502D Unspecified fracture of the lower end of left radius, subsequent encounter for closed fracture with routine healing (principal); R53.1 Weakness; R29.6 Repeated falls; Z91.81 History of falling; I10 Essential (primary) hypertension; I87.8 Other specified disorders of veins; I89.0 Lymphedema, not elsewhere classified; E78.5 Hyperlipidemia, unspecified; I25.10 Atherosclerotic heart disease of native coronary artery without angina pectoris; I25.2 Old myocardial infarction; Z95.5 Presence of coronary angioplasty implant and graft; J44.9 Chronic obstructive pulmonary disease, unspecified
CPT/HCPCS: 94640; 94664; G8978-GP-CK; G8979-GP-CI; G8987-GO-CI; J7626

== ENCOUNTER 2018-04-23 18:05 | Emergency (ER) | payer MEDICARE, BC ==
[2018-04-23] MEDS ORDERED: Guaifenesin DM 100-10/5 ML UDCUP ONE (19:39)
--- NOTE | 2018-04-24 07:44 | RAD ---
CHEST 2 VIEWS: Date: 04/23/18 Comparison made with the 01/11/18 study. FINDINGS: There is some haziness near the cardiac apex and left costophrenic angle on one of the upright PA tylor ms. On the lateral view, there is probably a little increased density posteriorly over the left hemid iaphragm. I believe a small left basilar infiltrate is probable, The right lung seems clear. The card iac size is stable. There is no congestive change. IMPRESSION: Minimal left basilar infiltrate. CODE T. POS: HOME
== END 2018-04-23 19:39 | disposition home or self-care (01) ==
LOC: BURERS 18:05
DX: J06.9 Acute upper respiratory infection, unspecified (principal); I25.10 Atherosclerotic heart disease of native coronary artery without angina pectoris; I25.2 Old myocardial infarction; E78.5 Hyperlipidemia, unspecified; I10 Essential (primary) hypertension; J44.9 Chronic obstructive pulmonary disease, unspecified; Z86.711 Personal history of pulmonary embolism; Z87.891 Personal history of nicotine dependence; Z79.899 Other long term (current) drug therapy; Z79.82 Long term (current) use of aspirin
CPT/HCPCS: 71046